=== PATIENT | male | born 1980 | race African-American/Black ===

== ENCOUNTER 2025-06-13 10:14 | Emergency (ER) | payer MEDICAID, OTHER ==
[~2025-06-13] VITALS: Ht 188 cm; Wt 114.0 kg
[~2025-06-13 10:14] MED LIST: GLIPIZIDE PO; HYDROCHLOROTHIAZIDE PO; METFORMIN PO
[2025-06-13 10:39] VITALS: O2SAT 98
[2025-06-13 11:02] LABS: BASOPHILS % 0.5 % (0.0-2.0); EOSINOPHILS % 2.5 % (0.0-5.0); HEMATOCRIT. 44.2 % (42.0-52.0); HEMOGLOBIN. 14.5 g/dL (14.0-18.0); LYMPHOCYTES % 18.0 % (20.0-50.0); MEAN PLATELET VOLUME 7.3 fl (7.4-10.4); MONOCYTES % 8.0 % (2.0-8.0); NEUTROPHILS % 71.0 % (40.0-76.0); PLATELET 223 x1000/uL (130-400); RED BLOOD CELL COUNT 4.89 mill/uL (4.7-6.1); RED CELL DISTRIBUTION WIDTH 14.2 % (11.6-14.6)
[2025-06-13 11:15] LABS: CREATININE 1.2 mg/dL (0.6-1.3); UREA NITROGEN BLOOD 12 mg/dL (9-23)
[2025-06-13] MEDS ORDERED: SODIUM CHLORIDE 0.9% 1,000 ML IV SCH (11:30)
[2025-06-13] MEDS ORDERED: BLOO-1657 HHN (12:17)
[2025-06-13 12:29] VITALS: BP 141/87; PULSE 98; RESP 16; TEMP 36.8; O2SAT 98
== END 2025-06-13 12:34 | disposition home or self-care (01) ==
LOC: ER 10:14
DX: E11.65 Type 2 diabetes mellitus with hyperglycemia (principal); I10 Essential (primary) hypertension; F10.90 Alcohol use, unspecified, uncomplicated; Z53.29 Procedure and treatment not carried out because of patient's decision for other reasons; Z55.6 Problems related to health literacy; Z76.0 Encounter for issue of repeat prescription; Z91.148 Patient's other noncompliance with medication regimen for other reason; Y90.9 Presence of alcohol in blood, level not specified
CPT/HCPCS: 36415; 80048; 82010; 82962; 83930; 85025; 99283